=== PATIENT | male | born 1985 | race Caucasian/White ===

== ENCOUNTER 2017-04-09 10:15 | Emergency (ER) | payer BC, OTHER ==
[~2017-04-09] VITALS: Ht 190.5 cm; Wt 109.3 kg
[~2017-04-09 10:15] MED LIST: MULT1CHW18 PO; OXYCODONE PO; PRLSR20 PO; RXC5 PO
[2017-04-09 10:29] VITALS: TEMP 37; Ht 190.5 cm; Wt 109.3 kg
[2017-04-09] MEDS ORDERED: OXYCODONE HCL IR 5 MG TAB (IMMEDIATE RELEASE) PO STA (10:59)
--- NOTE | 2017-04-09 11:23 | DIAGNOSTIC IMAGING REPORT ---
LEFT ANKLE 3 VIEWS HISTORY: L ankle pain s/p inversion COMPARISON: None. FINDINGS: There is an 8 mm well-corticated ossific density medial to the tip of the lateral malleolus consistent with an intra-articular loose body. This is due to an age-indeterminate avulsion injury. However, this is likely old. Otherwise, no acute fracture or dislocation within the left ankle. Diffuse soft tissue swelling. No radiopaque foreign bodies. IMPRESSION: 1. No definite acute fracture or dislocation within the left ankle. 2. An 8 mm intra-articular loose body within the lateral joint space adjacent to the lateral malleolus. This is consistent with an age-indeterminate avulsion injury. Electronically signed by: Jairo Erickson M.D. 04/09/2017 11:22 AM Dictated Date/Time: 04/09/2017 11:18 AM
--- NOTE | 2017-04-09 11:30 | EMERGENCY ROOM VISIT NOTE ---
History First contact with patient: 10:56 Chief Complaint: ANKLE PAIN Stated Complaint: LEFT ANKLE PAIN History of Present Illness The patient is a 31 year old male who presents to the Emergency Room with complaints of "left ankle pain". The patient states that last night she was walking and actually stepped into a hole with his left foot. He notes that he had extreme inversion of the left ankle. He notes pain at the lateral left malleolus and posteriorly. He rates the overall pain as a 9/10. His history of fracture but notes this pain is worse. He notes swelling. He is using his own crutches. Review of Systems A complete 6-point Review of Systems was discussed with the patient, with pertinent positives and negatives listed in the History of Present Illness. All remaining Review of Systems questions can be considered negative unless otherwise specified. Past Medical/Surgical History Previous fracture. Family History Patient lives locally. Social History Smoking Status: Never Smoker Alcohol Use: none Drug Use: none Marital Status: single Occupation Status: employed Current/Historical Medications Scheduled PRN Oxycodone Ir (Roxicodone Ir), 1-2 TAB PO Q4H PRN for Pain Physical Exam Vital Signs Date Time Temp Pulse Resp B/P (MAP) Pulse Ox O2 Delivery O2 Flow Rate FiO2 04/09/17 12:02 82 17 151/98 99 04/09/17 10:29 37.0 82 18 148/91 99 Room Air Physical Exam VITAL SIGNS - Vital signs and nursing notes were reviewed. Stable. GENERAL -31-year-old male appearing his stated age who is in no acute distress. Communicates well with provider and answers questions appropriately. SKIN - Without rashes. No petechial rashes. The skin is intact overlying left ankle. There is edema overlying the left lateral malleolus and posteriorly. There is also minimal edema overlying the left medial malleolus region. There is no swelling distally or proximally. No bruising. EXTREMITIES - No clubbing or peripheral cyanosis. Patient has good capillary refill of the left distal foot. There is no emergent neurovascular deficit. Swelling noted as above. Decreased range of motion secondary to pain. Tenderness elicited in the ankle joint to palpation but not proximally or distally. Medical Decision & Procedures ER Provider Diagnostic Interpretation: LEFT ANKLE 3 VIEWS HISTORY: L ankle pain s/p inversion COMPARISON: None. FINDINGS: There is an 8 mm well-corticated ossific density medial to the tip of the lateral malleolus consistent with an intra-articular loose body. This is due to an age-indeterminate avulsion injury. However, this is likely old. Otherwise, no acute fracture or dislocation within the left ankle. Diffuse soft tissue swelling. No radiopaque foreign bodies. IMPRESSION: 1. No definite acute fracture or dislocation within the left ankle. 2. An 8 mm intra-articular loose body within the lateral joint space adjacent to the lateral malleolus. This is consistent with an age-indeterminate avulsion injury. Electronically signed by: Jairo Erickson M.D. 04/09/2017 11:22 AM Dictated Date/Time: 04/09/2017 11:18 AM Medications Administered Medications (Trade) Dose Ordered Sig/Echo Route Start Time Stop Time Status Last Admin Dose Admin Oxycodone HCl (Roxicodone Immediate Rel Tab) 5 mg NOW STAT PO 04/09/17 10:59 04/09/17 11:01 DC 04/09/17 11:05 5 MG Medical Decision Patient was seen and evaluated as above. He presents to us today with left ankle pain. X-ray was obtained. This feels a questionable age indeterminate avulsion injury. I would favor this is new secondary to his clinical correlation. He will be placed in a gel ankle splint. He will be nonweightbearing on crutches that he already has. He'll be given oxycodone for pain. He is to follow with orthopedics. He is to remain nonweightbearing until that time. He was educated upon management, educated upon worrisome symptoms which to return, had questions answered prior to discharge, and was discharged home in good condition. In the evaluation and treatment of this patient, the following differential diagnoses were considered: Ankle Fracture, Ankle Sprain, Distal Fibula Fracture , Distal Tibia Fracture, Foot Fracture, [place] Fracture. No red flags identified in the [employer] drug monitoring system. Impression Primary Impression: Left ankle pain Departure Information Dispostion Home / Self-Care Condition GOOD Prescriptions Oxycodone Ir (Roxicodone Ir) 5 Mg Tab 1-2 TAB PO Q4H Y for Pain, #20 TAB For Initial Treatment Prov: Rosalio Silva PA-C 04/09/17 Referrals No Doctor, Assigned (PCP) Scott Vera D.O. Patient Instructions [facility] Additional Instructions You have been treated in the Emergency Department for a left Ankle injury. You have received pain medicine in the emergency department which impairs your ability to operate a vehicle. It is illegal for you to drive after receiving these medicines. You have been prescribed Oxy IR to be used for pain control. This is a narcotic medication. You cannot drive or consume alcohol while on this medicine. This medicine should only be used for pain that cannot be controlled with over-the- counter pain medicines. For pain control, you can use the following [id number] medicines (if >12 yo): - Regular strength (325mg/tab) Tylenol (acetaminophen) 2 tabs every 4-6 hours as needed. Do not exceed 12 tablets in a 24 hour period. Avoid taking more than 3 grams (3000 mg) of Tylenol per day. This includes any other sources of acetaminophen you may take on a regular basis. - Regular strength (200 mg/tab) Advil (ibuprofen) 1-2 tabs every 4-6 hours as needed. Do not exceed a dose of 3200 mg per day. If this is a recent injury (<24 hrs), ice can be applied to the area of pain for the first 3 days to help decrease pain and inflammation. You have been provided the number for an Orthopaedic Surgeon. You should call this number as soon as possible to establish a follow-up visit from today's Emergency Department visit. Keep the ankle brace/splint in place until cleared by Orthopedics. Use the crutches you have to keep ALL weight off of the ankle until weight bearing is tolerable. Return to the Emergency Department if your current symptoms worsen despite treatment course outlined above, or if you develop any of the following symptoms : intractable pain despite aforementioned treatment course or new onset of numbness or tingling of the foot. LEFT ANKLE 3 VIEWS HISTORY: L ankle pain s/p inversion COMPARISON: None. FINDINGS: There is an 8 mm well-corticated ossific density medial to the tip of the lateral malleolus consistent with an intra-articular loose body. This is due to an age-indeterminate avulsion injury. However, this is likely old. Otherwise, no acute fracture or dislocation within the left ankle. Diffuse soft tissue swelling. No radiopaque foreign bodies.
[2017-04-09] MEDS ORDERED: OXYC1TAB3 PO (11:49)
[2017-04-09 12:02] VITALS: BP 151/98; PULSE 82; O2SAT 99
== END 2017-04-09 12:05 | disposition home or self-care (01) ==
LOC: C.EDB 10:16 → C.EDD 12:05
DX: M25.572 Pain in left ankle and joints of left foot (principal); Z87.81 Personal history of (healed) traumatic fracture